=== PATIENT | male | born 1960 | race Caucasian/White ===

== ENCOUNTER 2017-03-10 17:24 | Emergency (ER) | payer BC ==
[2017-03-10] MEDS ORDERED: HYDROCOD/ACETAMIN 7.5-325 MG/15 ML ORAL SOLN UDCUP PO ONE (18:25)
[2017-03-10] MEDS ORDERED: LIDOCAINE 2% VISCOUS SOLN 20 ML UDCUP PO ONE (18:26)
[2017-03-10] MEDS ORDERED: ACYCLOVIR 200 MG CAPSULE PO ONE (18:26)
[2017-03-10] MEDS ORDERED: CLINDAMYCIN HCL 150 MG CAPSULE PO ONE (18:26)
--- NOTE | 2017-03-10 18:31 | ER Document Report ---
HPI - HPI Patient complains to provider of: mouth sores Onset: Other - 4 days Onset/Duration: Persistent Quality of pain: Achy Pain Level: 5 Context: Patient presents complaining of painful mouth ulcerations for the past 4 days. Patient does state that he has bit the inside of his right cheek at least twice since his symptoms started. Patient complains of pain and swelling inside his mouth. Patient has been using Benadryl and a maalox solution orally to treat his mouth ulcers after consultation with his primary doctor. [place]. Associated Symptoms: denies: Fever Exacerbated by: Food Relieved by: Denies Similar symptoms previously: No Recently seen / treated by doctor: No - ROS ROS below otherwise negative: Yes Systems Reviewed and Negative: Yes All other systems reviewed and negative - CONSTITUTIONAL Constitutional: DENIES: Fever - EENT EENT: REPORTS: Sore Throat - RESPIRATORY Respiratory: DENIES: Coughing - GASTROINTESTINAL Gastrointestinal: DENIES: Patient vomiting, Diarrhea - DERM Skin Color: Normal Past Medical History - General Information source: Patient - Social History Smoking Status: Never Smoker Chew tobacco use (# tins/day): No Frequency of alcohol use: Occasional Drug Abuse: None Lives with: Spouse/Significant other Family History: Reviewed & Not Pertinent Patient has suicidal ideation: No Patient has homicidal ideation: No - Medical History Medical History: Negative Renal/ Medical History: Denies: Hx Peritoneal Dialysis Past Surgical History: Reports: Hx Orthopedic Surgery - left wrist Vertical Provider Document - CONSTITUTIONAL Agree With Documented VS: Yes Exam Limitations: No Limitations General Appearance: WD/WN, No Apparent Distress - HEENT HEENT: Atraumatic, Normocephalic, Pharyngeal Tenderness, Pharyngeal Erythema. negative: Pharyngeal Exudate, Tympanic Membrane Red, Tympanic Membrane Bulging Mouth Diagram: 1 - Edematous, erythematous skin with tender ulcerations, patient with exudative versus purulent discharge to buccal mucosa, no drainable abscess - NECK Neck: Lymphadenopathy-Left, Lymphadenopathy-Right - RESPIRATORY Respiratory: Breath Sounds Normal, No Respiratory Distress O2 Sat by Pulse Oximetry: 96 - CARDIOVASCULAR Cardiovascular: Regular Rate, Regular Rhythm - BACK Back: Normal Inspection - MUSCULOSKELETAL/EXTREMETIES Musculoskeletal/Extremeties: MAEW - NEURO Level of Consciousness: Awake, Alert, Appropriate Motor/Sensory: No Motor Deficit - DERM Integumentary: Warm Course - Vital Signs Vital signs: Temp Pulse Resp BP Pulse Ox 97.9 F 96 16 149/86 H 96 03/10/17 17:28 03/10/17 17:28 03/10/17 17:28 03/10/17 17:28 03/10/17 17:28 Discharge - Discharge Clinical Impression: Elevated blood pressure reading, Herpes gingivostomatitis, Mouth sore Condition: Stable Disposition: HOME, SELF-CARE Instructions: Acyclovir ([facility]), Clindamycin ([facility]), Mouth Sores ([facility]), Oral Narcotic Medication ([facility]) Additional Instructions: Return immediately for any new or worsening symptoms Followup with your primary care provider, call tomorrow to make a followup appointment Prescriptions: Acyclovir [Zovirax 200 mg Capsule] 400 mg PO Q4H #70 capsule Clindamycin HCl [Cleocin 300 mg Capsule] 300 mg PO TID #21 capsule Hydrocodone/Acetaminophen [Lortab 7.5-325 mg/15 ml Oral Soln] 10 ml PO Q6H PRN # 150 ml PRN Reason: Forms: Elevated Blood Pressure Referrals: ENT [Provider Group] - Follow up as needed
[2017-03-10 19:09] VITALS: BP 140/83
== END 2017-03-10 19:00 | disposition home or self-care (01) ==
LOC: ER 17:24
DX: B00.2 Herpesviral gingivostomatitis and pharyngotonsillitis (principal); R03.0 Elevated blood-pressure reading, without diagnosis of hypertension; R59.0 Localized enlarged lymph nodes
CPT/HCPCS: 99282; J3490